=== PATIENT | male | born 1985 | race African-American/Black ===

== ENCOUNTER 2017-03-05 18:00 | Emergency (ER) | payer OTHER ==
[~2017-03-05] VITALS: Ht 188 cm; Wt 106.6 kg
[2017-03-05] MEDS ORDERED: IBUPROFEN 600600 M1 PO (18:24)
[2017-03-05] MEDS ORDERED: NORCO 5-325 TA1 EACH PO (18:28)
[2017-03-05 18:30] VITALS: BP 157/103
== END 2017-03-05 18:42 | disposition home or self-care (01) ==
LOC: ER 18:00
DX: M25.562 Pain in left knee (principal); M23.8X2 Other internal derangements of left knee; Z98.890 Other specified postprocedural states